=== PATIENT | female | born 1955 | race Caucasian/White ===

== ENCOUNTER 2018-09-29 05:27 | Inpatient (IN) | payer OTHER ==
[2018-09-29] MEDS: LACTATED RINGER'S 1,000 ML IV* (06:00)
[2018-09-29] MEDS ORDERED: POLYMYXIN/BACITRACIN 1L IRRIG (06:42)
[2018-09-29] MEDS ORDERED: MIDAZOLAM 1 MG/ML 2 ML INJ (06:44)
[2018-09-29] MEDS ORDERED: METOCLOPRAMIDE 10 MG INJ (06:44)
[2018-09-29] MEDS ORDERED: ONDANSETRON 4 MG INJ (06:44)
[2018-09-29] MEDS ORDERED: PROPOFOL 20 ML ×2 (06:44→07:31)
[2018-09-29] MEDS ORDERED: SUCCINYLCHOLINE CHLORIDE 100 MG/5 ML SYG IV ×2 (06:44→10:43)
[2018-09-29] MEDS ORDERED: FENTAnyl 50 MCG/ML VIAL (06:44)
[2018-09-29] MEDS ORDERED: CEFAZOLIN 2 GM/50 ML (PMX) 50 ML IVPB (06:47)
[2018-09-29] MEDS ORDERED: HYDROmorphONE 1 MG/5 ML IV SYRINGE IV (07:00)
[2018-09-29] MEDS ORDERED: ONDANSETRON 4 MG INJ IV (07:00)
[2018-09-29] MEDS ORDERED: DIPHENHYDRAMINE 50 MG INJ IV (07:00)
[2018-09-29] MEDS ORDERED: hydrALAzine 20 MG INJ IV (07:00)
[2018-09-29] MEDS ORDERED: LABETALOL HCL 20MG INJ IV (07:00)
[2018-09-29] MEDS ORDERED: DEXAMETHASONE 4 MG/ML 1 ML INJ (07:20)
[2018-09-29] MEDS ORDERED: METOPROLOL 5 MG INJ (07:22)
[2018-09-29] MEDS ORDERED: THROMBIN 5000 UNIT VIAL (07:40)
[2018-09-29] MEDS: BUPIVACAINE 0.25% (MPF) 30 ML INJ (07:40)
[2018-09-29] MEDS ORDERED: GELATIN SIZE 100 SPONGE (07:40)
[2018-09-29] MEDS: POLYMYXIN/BACITRACIN 1L IRRIG (07:40)
[2018-09-29] MEDS ORDERED: HYDROmorphONE 2 MG/ML SYG (07:51)
[2018-09-29] MEDS: HYDROmorphONE 1 MG/5 ML IV SYRINGE IV ×5 (10:13→10:44)
[2018-09-29] MEDS: MEPERIDINE 25 MG INJ IV (10:13)
[2018-09-29] MEDS ORDERED: NACL 0.9% 3 ML SYG IV (10:30)
[2018-09-29] MEDS ORDERED: ACETAMINOPHEN 325 MG TAB PO (10:30)
[2018-09-29] MEDS ORDERED: PROCHLORPERAZINE 10 MG TAB PO (10:30)
[2018-09-29] MEDS ORDERED: DIAZEPAM 5 MG TAB PO (10:30)
[2018-09-29] MEDS ORDERED: TRIMETHOBENZAMIDE 100 MG/ML VIAL IM (10:30)
[2018-09-29] MEDS ORDERED: AL HYDROX/MG HYDROX/SIMETH 30 ML CUP PO (10:30)
[2018-09-29] MEDS ORDERED: NALOXONE (0.4 MG/ML) INJ IV (10:30)
[2018-09-29] MEDS ORDERED: HYDROCODONE/APAP (5/325) TAB PO (10:30)
[2018-09-29] MEDS ORDERED: DIAZEPAM 5 MG/ML SYG IM (10:30)
[2018-09-29] MEDS ORDERED: ZOLPIDEM 5 MG TAB PO (10:30)
[2018-09-29] MEDS ORDERED: BETHANECHOL 25 MG TAB PO (10:30)
[2018-09-29] MEDS: HYDROmorphONE 0.2 MG/ML PCA IV ×2 (10:56→20:35)
[2018-09-29] MEDS: CEFAZOLIN 1 GM/50 ML (PMX) 50 ML IVPB ×3 (12:34→23:47)
[2018-09-29] MEDS: DEXTROSE 5%-0.45% NACL 1,000 ML IV ×2 (12:34→23:47)
[2018-09-29] MEDS: LOSARTAN 50 MG TAB PO (15:32)
[2018-09-29] MEDS ORDERED: RANITIDINE 150 MG TAB PO (21:00)
[2018-09-29] MEDS: DIPHENHYDRAMINE 50 MG CAP PO (23:47)
[2018-09-30 05:26] LABS: HEMATOCRIT 35.2 % (37.0-47.0); HEMOGLOBIN 11.4 g/dl (12.0-16.0)
[2018-09-30] MEDS: CEFAZOLIN 1 GM/50 ML (PMX) 50 ML IVPB (05:42)
[2018-09-30] MEDS: PANTOPRAZOLE (EC) 40 MG TAB PO (05:42)
[2018-09-30 05:45] LABS: ANION GAP 8 (5-13); BLOOD UREA NITROGEN 12 mg/dl (7-20); CALCIUM 8.3 mg/dl (8.4-10.2); CARBON DIOXIDE 31 mmol/L (21-31); CHLORIDE 101 mmol/L (97-110); CREATININE 0.66 mg/dl (0.44-1.00); Estimated GFR > 60 mL/min (>60); GLUCOSE 123 mg/dl (70-220); POTASSIUM 3.4 mmol/L (3.5-5.1); SODIUM 140 mmol/L (135-144)
[2018-09-30] MEDS: DEXTROSE 5%-0.45% NACL 1,000 ML IV ×2 (06:04→16:04)
[2018-09-30] MEDS: LEVOTHYROXINE 150 MCG TAB PO (06:41)
[2018-09-30] MEDS ORDERED: BETHANECHOL 25 MG TAB PO (08:00)
[2018-09-30] MEDS ORDERED: METHYLCELLULOSE PACKET PO (09:00)
[2018-09-30] MEDS: PSYLLIUM 28% PACKET PO (09:00)
[2018-09-30] MEDS: LORATADINE 10 MG TAB PO (09:11)
[2018-09-30] MEDS: FERROUS SULFATE (EC) 325 MG TAB PO ×3 (09:11→21:00)
[2018-09-30] MEDS: ASCORBIC ACID 500 MG TAB PO ×2 (09:11→21:23)
[2018-09-30] MEDS: DOCUSATE SODIUM 100 MG CAP PO ×2 (09:11→21:23)
[2018-09-30] MEDS: HYDROCODONE/APAP (5/325) TAB PO (09:12)
[2018-09-30] MEDS: LOSARTAN 50 MG TAB PO (09:12)
[2018-09-30 11:27] LABS: ADD UMIC NO; UR ASCORBIC ACID NEGATIVE (NEGATIVE); UR BILIRUBIN (Dip) NEGATIVE (NEGATIVE); UR BLOOD (Dip) NEGATIVE (NEGATIVE); UR CLARITY CLEAR (CLEAR); UR COLOR STRAW (YELLOW); UR GLUCOSE (Dip) NEGATIVE (NEGATIVE); UR KETONES (Dip) NEGATIVE (NEGATIVE); UR LEUKOCYTE ESTERASE (Dip) NEGATIVE Leu/ul (NEGATIVE); UR NITRITE (Dip) NEGATIVE (NEGATIVE); UR SPECIFIC GRAVITY (Dip) 1.008 (1.003-1.030); UR TOTAL PROTEIN (Dip) NEGATIVE (NEGATIVE); UR UROBILINOGEN (Dip) NEGATIVE (NEGATIVE)
[2018-09-30] MEDS: ONDANSETRON 4 MG INJ IV (12:49)
[2018-09-30] MEDS: OXYCODONE/ACETAMINOPHEN (5/325) TAB PO ×3 (13:59→22:51)
[2018-09-30] MEDS ORDERED: OXYCODONE/ACETAMINOPHEN (5/325) TAB PO (14:00)
[2018-09-30] MEDS: POTASSIUM CHLORIDE 100 ML IVPB (15:17)
[2018-09-30] MEDS: CEPASTAT LOZENGE MT (22:51)
[2018-10-01] MEDS: DEXTROSE 5%-0.45% NACL 1,000 ML IV ×2 (02:04→12:04)
[2018-10-01] MEDS: OXYCODONE/ACETAMINOPHEN (5/325) TAB PO ×4 (05:13→15:30)
[2018-10-01 05:39] LABS: ADD MAN DIFF? NO
[2018-10-01 05:42] LABS: WHITE BLOOD COUNT 8.5 10^3/ul (4.8-10.8)
[2018-10-01 05:42] LABS: BASOPHILS % 0.4 % (0.0-2.0); EOSINOPHILS # 0.1 10^3/ul (0.0-0.5); EOSINOPHILS % 0.8 % (0.0-7.0); HEMATOCRIT 32.4 % (37.0-47.0); HEMOGLOBIN 10.5 g/dl (12.0-16.0); LYMPHOCYTES # 1.8 10^3/ul (0.8-2.9); LYMPHOCYTES % 20.8 % (15.0-51.0); MEAN CORPUSCULAR HEMOGLOBIN 29.2 pg (29.0-33.0); MEAN CORPUSCULAR HGB CONC 32.4 g/dl (32.0-37.0); MEAN PLATELET VOLUME 11.1 fl (7.4-10.4); MONOCYTE # 1.1 10^3/ul (0.3-0.9); MONOCYTES % 12.6 % (0.0-11.0); NEUTROPHIL # 5.6 10^3/ul (1.6-7.5); PLATELET COUNT 154 10^3/UL (140-415)
[2018-10-01 06:18] LABS: ALANINE AMINOTRANSFERASE 29 IU/L (13-69); ALBUMIN 3.1 g/dl (3.3-4.9); ALBUMIN/GLOBULIN RATIO 1.34; ALKALINE PHOSPHATASE 65 IU/L (42-121); ANION GAP 3 (5-13); ASPARTATE AMINO TRANSFERASE 23 IU/L (15-46); BILIRUBIN,INDIRECT 0.4 mg/dl (0-1.1); BILIRUBIN,TOTAL 0.4 mg/dl (0.2-1.3); BLOOD UREA NITROGEN 15 mg/dl (7-20); CALCIUM 8.3 mg/dl (8.4-10.2); CARBON DIOXIDE 34 mmol/L (21-31); CHLORIDE 99 mmol/L (97-110); CREATININE 0.63 mg/dl (0.44-1.00); Estimated GFR > 60 mL/min (>60); GLUCOSE 108 mg/dl (70-220); POTASSIUM 3.8 mmol/L (3.5-5.1); SODIUM 136 mmol/L (135-144); TOTAL PROTEIN 5.4 g/dl (6.1-8.1)
[2018-10-01] MEDS: PANTOPRAZOLE (EC) 40 MG TAB PO (06:27)
[2018-10-01] MEDS: LEVOTHYROXINE 150 MCG TAB PO (06:27)
[2018-10-01] MEDS: FERROUS SULFATE (EC) 325 MG TAB PO ×2 (08:27→13:00)
[2018-10-01] MEDS: PSYLLIUM 28% PACKET PO (08:27)
[2018-10-01] MEDS: ASCORBIC ACID 500 MG TAB PO (08:27)
[2018-10-01] MEDS: DOCUSATE SODIUM 100 MG CAP PO (08:27)
[2018-10-01] MEDS: LORATADINE 10 MG TAB PO (08:28)
[2018-10-01] MEDS: LOSARTAN 50 MG TAB PO (08:41)
[2018-10-01] MEDS: ONDANSETRON 4 MG INJ IV (10:07)
[2018-10-01] MEDS: CYCLOBENZAPRINE 10 MG TAB PO (11:06)
== END 2018-10-01 16:05 | disposition home or self-care (01) | DRG 517 ==
LOC: REC 05:27 → MS1 11:13
PROC: 01NB0ZZ Release Lumbar Nerve, Open Approach (ICD-10-PCS; principal; 2018-09-29 07:00)
PROC: 4A11X4G Monitoring of Peripheral Nervous Electrical Activity, Intraoperative, External Approach (ICD-10-PCS; 2018-09-29 07:00)
DX: M48.061 Spinal stenosis, lumbar region without neurogenic claudication (principal); I10 Essential (primary) hypertension; E03.9 Hypothyroidism, unspecified; G47.30 Sleep apnea, unspecified
CPT/HCPCS: 72020; 80048; 80053; 81003; 85014; 85018; 85025; 86850; 86900; 86901; 86920; 87086; 88304; 88311; 97110; 97116; 97161; 97530